=== PATIENT | male | born 1995 | race Caucasian/White ===

== ENCOUNTER 2023-02-13 01:39 | Emergency (ER) | payer MEDICAID ==
[~2023-02-13] VITALS: Ht 167.6 cm; Wt 99.0 kg
[2023-02-13 01:50] VITALS: BP 138/82
[2023-02-13] MEDS ORDERED: HYDROCODONE/ACETAMINOPHEN 5/325MG TABLET PO STA (02:13)
[2023-02-13] MEDS ORDERED: KETOROLAC 60MG/2ML VIAL IM STA (02:13)
[2023-02-13] MEDS ORDERED: NAPR-681 PO (03:12)
[2023-02-13] MEDS ORDERED: HYDR-4001 PO (03:12)
== END 2023-02-13 03:25 | disposition home or self-care (01) ==
LOC: ER 02:03
DX: S80.01XA Contusion of right knee, initial encounter (principal); M25.561 Pain in right knee; W18.39XA Other fall on same level, initial encounter; Y93.89 Activity, other specified; Y92.89 Other specified places as the place of occurrence of the external cause; Y99.8 Other external cause status
CPT/HCPCS: 73562; 96372; 99283; J1885; Z7610